=== PATIENT | male | born 1975 | race Caucasian/White ===

== ENCOUNTER 2025-07-25 13:37 | Emergency (ER) | payer BC, SELFPAY ==
[2025-07-25 13:48] VITALS: BP 141/100
[2025-07-25 14:47] LABS: Hematocrit 45.4 % (39.0-52.0); Hemoglobin 16.0 g/dL (13.0-18.0); Mean Corp Hgb Conc. 35.2 g/dL (33.0-37.0); Mean Corpuscular Volume 89.2 fL (80.0-94.0); Nucleated Red Blood Cells % 0 % (-); Platelet Count 217 10^3/uL (130-400); Red Cell Dist. Width 11.8 % (11.5-14.5)
[2025-07-25 15:00] LABS: ALT (SGPT) 110 U/L (0-50); AST (SGOT) 130 U/L (17-59); Albumin 5.0 g/dl (3.5-5.0); Alkaline Phosphatase 78 U/L (38-126); Blood Urea Nitrogen 9 mg/dl (9-20); Calcium 9.3 mg/dl (8.4-10.2); Carbon Dioxide 24 mmol/L (22-30); Chloride 97 mmol/L (98-107); Glucose 95 mg/dl (70-99); Potassium 4.1 mmol/L (3.5-5.1); Sodium 137 mmol/L (135-145); Total Protein 8.3 g/dl (6.3-8.2); eGFR > 60.00
[2025-07-25 15:12] LABS: Troponin I < 0.012 ng/ml
--- NOTE | 2025-07-25 17:40 | ED.GENMED ---
History of Present Illness
General
Chief Complaint: Chest Pain
Source: patient
Time Seen by Provider: 07/25/25 17:31
History of Present Illness
History of Present Illness:
50-year-old male presents to the emergency room complaining of pain in his left lateral chest. Patient has been experiencing the discomfort intermittently for the past day or so. He describes it as a dull discomfort. He does not have associated
shortness of breath, diaphoresis, nausea. It does not get worse with exertion. Movement does not really seem to make it worse either. He admits to increased alcohol use over the holidays. His activity is not limited at all by the discomfort.
The discomfort became more constant starting around noon to 1 PM.
Phy Exam
Physical Exam
Physical Exam:
General: Awake, Alert, Oriented X3. No acute distress.
Vitals: unremarkable
Head: Atraumatic
Eyes: Pupils equal, EOMI
Throat: Airway intact, no exudates
Neck: Trachea midline
Lungs: Clear and equal b/l
Heart: Regular rate, no murmurs
Abd: Soft, Nontender, No pulsatile mass
Neuro: Nonfocal
Skin: Warm, dry, no rash
Extremities: pulses equal b/l, no edema
Scores
Heart Score for Chest Pain Patients
STEMI patient?: No
History: Slightly or Non-Suspicious
ECG: Normal
Age: >45 - <65 years
Risk Factors: 1 or 2 Risk Factors
Troponin: </= Normal Limit
Heart Score for Chest Pain Patients: 2
Heart Score Risk: 2.5% MACE over next 6 weeks
Course
Orders/Labs/Results
Orders:
Orders
07/25/25 13:38
Electrocardiogram (*1) Urgent
Reason for Study: Chest Pain
Cardiac Monitoring- Treatment ONCE
EKG- Treatment ONCE
IV Insert/Care/Rem.- Treatment PRN
O2 Therapy [RESP] Urgent
Titrate/Wean O2 to maintain O2 sat greater than (%): 90
Special Instructions: Maintain sats >/=90%
Pulse Ox/spot Check [RESP] Urgent
Quantity: 1
Special Instructions: ON ROOM AIR
07/25/25 14:23
Complete Blood Count/With Diff Urgent
Comprehensive Metabolic Panel Urgent
Troponin I Urgent
07/25/25 17:39
CR Chest - 2 Views Urgent
Comment:
Reason For Exam: left sided chest pain
Abnormal Lab Results
07/25/25
14:23
WBC 4.1 L 10^3/uL
(4.8-10.8)
MCH 31.4 H pg
(27.0-31.0)
Monocytes % 12.8 H %
(1.7-9.3)
Chloride 97 L mmol/L
(98-107)
AST 130 H U/L
(17-59)
ALT 110 H U/L
(0-50)
Total Protein 8.3 H g/dl
(6.3-8.2)
07/25/25 14:23
07/25/25 14:23
Vital Signs
Initial and Last Documented VS:
Initial Vital Signs
Temp Pulse Resp BP Pulse Ox
97.2 F 86 20 141/100 97
07/25/25 13:48 07/25/25 13:48 07/25/25 13:48 07/25/25 13:48 07/25/25 13:48
Last Documented Vital Signs
Temp Pulse Resp BP Pulse Ox
97.2 F 109 15 145/94 95
07/25/25 13:48 07/25/25 20:00 07/25/25 20:00 07/25/25 20:00 07/25/25 20:00
MDM/Problems Addressed
Differential Diagnosis Includes:
Acute coronary syndrome, GERD, pericarditis, chest wall pain
MDM/Problems Addressed:
Patient presents with dull pain left chest. Chest x-ray here shows no acute abnormality. There is no acute ischemic changes on EKG. Troponin is normal and it was measured several hours after the onset of symptoms. Patient likely has worsening of
GERD. He does admit to drinking more alcohol over the holiday season. Follow-up primary care provider. Return for worsening symptoms.
*Radiology
Radiology exam reviewed: radiology read reviewed
*Pulse Oximetry
SaO2: 97
Oxygen Mode of Delivery: Room air
Patient hypoxic: no
*EKG
Interpreted by ED Provider?: Yes
Comparison EKG: no comparison EKG present
Heart Rate: 88
Rate: normal
Rhythm: sinus
Rosenberg: normal axis
Interval: normal interval
QRS Pattern: normal QRS
Ischemia: no ischemia
*[employer] Interpretation
Rate: normal
Interpretation: normal
Rhythm: sinus
*Critical Care Note
Total Time (30-74mins, 75-104mins- exclusive of procedures): Not Applicable
ED Attending Note
-
Portions of this chart may have been created with voice recognition software.� Occasional wrong word or��sound alike� substitutions may have occurred due to the inherent limitations of voice recognition software.
Discharge Plan
Departure
Patient Disposition: Home (Routine Discharge)
Date of Disposition: 07/25/25
Time of Disposition: 19:58
Patient with high blood pressure during this ER visit?: Yes
Condition: Good
Discharge Problem:
Chest pain
Instructions: Chest Pain PCP Follow Up
Referrals:
Armando Holt, DO [Family Provider, Internal Medicine]
Interventions
Interventions:
*ED COVID-19 Vaccine History Last Done: 07/25/25 13:48
*ED Influenza Vaccine History Last Done: 07/25/25 13:48
[facility] Risk Assessment Tool Last Done: 07/25/25 17:57
*Risk Screen - Suicide (C-SSRS) Last Done: 07/25/25 13:48
*Nursing Disposition Last Done: 07/25/25 20:23
ED- Cardiac Assessment Last Done: 07/25/25 17:58
Discharge Date and Time
Discharge Date/Time: 07/25/25 20:23
Print Language: MAURITANIAN
[2025-07-25 17:58] VITALS: BP 142/92
[2025-07-25 18:00] VITALS: BP 140/89
[2025-07-25 19:00] VITALS: BP 138/91
[2025-07-25 20:00] VITALS: BP 145/94
== END 2025-07-25 20:23 | disposition home or self-care (01) ==
LOC: EMR 13:37
PROVIDERS: Emergency Medicine; EMERGENCY PHYSICIAN Emergency Medicine; FAMILY PHYSICIAN Internal Medicine
DX: R07.9 Chest pain, unspecified (principal)
CPT/HCPCS: 99284; 71046; 80053; 84484; 85025; 93005